=== PATIENT | female | born 1990 | race Caucasian/White ===

== ENCOUNTER 2021-10-08 20:50 | Emergency (ER) | payer OTHER, BC ==
[2021-10-08] MEDS ORDERED: Boostrix 0.5 ML (Tdap) VIAL ONE (21:56)
== END 2021-10-08 21:51 | disposition home or self-care (01) ==
LOC: BURERS 20:50
DX: S83.92XA Sprain of unspecified site of left knee, initial encounter (principal); W01.0XXA Fall on same level from slipping, tripping and stumbling without subsequent striking against object, initial encounter
CPT/HCPCS: 90471; 90715